=== PATIENT | male | born 1980 | race African-American/Black ===

== ENCOUNTER 2019-07-07 14:41 | Inpatient (IN) | payer BC ==
[2019-07-07] VITALS (200 sets, daily range): BP systolic 135–149; BP diastolic 97–118; PULSE 135–136; TEMP 98–98.7; O2SAT 90–99
[~2019-07-07] VITALS: Ht 180.3 cm; Wt 118.2 kg
[~2019-07-07 14:41] MED LIST: BACTRIM DS 8001 TAB PO; FLAGYL500 MG PO; GLUCOPHAGE1000 MG PO; GLUCOPHAGE500 MG/TAB PO; HYGROTON 2525 MG/TAB PO; MOTRIN 200200 MG/TAB PO; NO HOME MEDICATIONS; PERCOCET 325 MG1 TA2 PO; TYLENOL 325MG325 MG PO
[2019-07-07 15:14] LABS: BASO # 0.1 (0.0-0.2); BASO % 0.5 % (0.0-2.0); EOS # 0.1 (0.0-0.7); EOS % 0.5 % (0-4.0); GRAN # 10.3 (1.4-6.5); HEMATOCRIT 48.4 % (42.0-52.0); LYMPH # 1.5 (1.2-3.4); LYMPH % 11.9 % (20.0-51.0); MEAN CELL VOLUME 92 fl (80.0-100.0); MEAN CORPUSCULAR HEMOGLOBIN 31 pg (27.0-31.0); MEAN CORPUSCULAR HGB CONC 33 g/dl (33.0-37.0); MEAN PLATELET VOLUME 8.6 fl (7.4-10.4); MONO # 0.8 (0.1-0.6); MONO % 6.5 % (1.7-9.3); PLATELET COUNT 331 K/mm3 (130-400); RED BLOOD COUNT 5.25 M/mm3 (4.20-5.60); REDCELL DISTRIBUTION WIDTH-CV 13.8 % (11.5-14.5)
[2019-07-07 15:22] LABS: INR 0.9 (0.8-3.0); PROTHROMBIN TIME 10.8 SECONDS (9.7-12.8)
[2019-07-07 15:24] LABS: PARTIAL THROMBOPLASTIN TIME 29.8 SECONDS (26.0-37.0)
[2019-07-07 15:26] LABS: ALBUMIN 3.8 gm/dL (3.5-5.0); BILIRUBIN,TOTAL 0.7 mg/dL (0.0-1.0); CALCIUM 8.8 mg/dL (8.4-10.2); CREATININE, serum 1.37 (0.66-1.25); POTASSIUM 4.7 mmol/L (3.4-5.0); TOTAL PROTEIN 6.6 gm/dL (6.4-8.2)
[2019-07-07 15:48] LABS: TROPONIN-I 0.059 ng/mL (0.000-0.035)
--- NOTE | 2019-07-07 18:31 | NUR ---
PT ADMITTED FROM ED WITH AFIB. PT TRANSFERED TO BED. ICU MONITOR APPLIED. PT SHOWING AFIB ON TELE. PT IS AXOX4. PT ON DILT DRIP AT 15ML/HR. PT ORIENTED TO ROOM AND FLOOR. BEDSIDE. PT INSTRUCTED TO CALL [facility] ALL NEEDS.
--- NOTE | 2019-07-07 19:22 | NUR ---
CALLED REGARDING PT'S HR 135 AND DILT DRIP AT 15MG\HR. ORDER RECEIVED TO SLOWLY TITRATE DILT DRIP FROM 15 TO 20 OVER TWO HOURS. CALL BACK IN HR NOT BELOW 110. ENDORSED TO FOLLOWING CHUYITA.
--- NOTE | 2019-07-07 23:00 | NUR ---
Patient complaining of chest tightness 10/06. Called Dr. Toledo for new orders. Patient otherwise pleasant and cooperative. Does not complain of palpitations, IV infusing well.
[2019-07-07 23:52] LABS: PROTHROMBIN TIME 11.4 SECONDS (9.7-12.8)
[2019-07-07 23:55] LABS: PARTIAL THROMBOPLASTIN TIME 30.2 SECONDS (26.0-37.0)
[2019-07-08] VITALS (582 sets, daily range): BP systolic 91–118; BP diastolic 39–90; PULSE 58–124; TEMP 97.8–98.9; O2SAT 52–100
--- NOTE | 2019-07-08 01:26 | NUR ---
Patient resting in bed, denies chest tightness at this time, IV sites infusing well, patient uses call light appropriately for assistance.
--- NOTE | 2019-07-08 06:21 | NUR ---
Patient sitting up in bed, watching TV. States he has not slept all night and is wondering what time his procedure will be today or how long he will have to stay. Discussed plan of care and patient was agreeable. IVs infusing well, occcasional cough noted-nonproductive, patient uses call light appropriately.
[2019-07-08 06:51] LABS: CALCIUM 8.3 mg/dL (8.4-10.2); CHOLESTEROL RISK RATIO 2.8; CREATININE, serum 1.64 (0.66-1.25); POTASSIUM 4.2 mmol/L (3.4-5.0)
[2019-07-08 07:13] LABS: TROPONIN-I 0.071 ng/mL (0.000-0.035)
[2019-07-08 07:33] LABS: BASO # 0.1 (0.0-0.2); BASO % 0.8 % (0.0-2.0); EOS # 0.1 (0.0-0.7); GRAN # 7.5 (1.4-6.5); GRAN % 67.1 % (42.2-75.2); HEMATOCRIT 43.3 % (42.0-52.0); HEMOGLOBIN 14.3 g/dl (13.5-18.0); LYMPH # 2.4 (1.2-3.4); LYMPH % 21.7 % (20.0-51.0); MEAN CELL VOLUME 93 fl (80.0-100.0); MEAN CORPUSCULAR HEMOGLOBIN 31 pg (27.0-31.0); MEAN CORPUSCULAR HGB CONC 33 g/dl (33.0-37.0); MEAN PLATELET VOLUME 9.4 fl (7.4-10.4); MONO % 8.6 % (1.7-9.3); PLATELET COUNT 331 K/mm3 (130-400); RED BLOOD COUNT 4.67 M/mm3 (4.20-5.60); REDCELL DISTRIBUTION WIDTH-CV 14.1 % (11.5-14.5)
--- NOTE | 2019-07-08 07:50 | NUR ---
HEPARIN DRIP STOPPED AT 0700 D/T HIGH XA. REPEAT XA STILL HIGH 1.91. WILL KEEP OFF FOR TWO HOURS AND RECHECK XA.
--- NOTE | 2019-07-08 11:36 | NUR ---
0850: SPOKE WITH DINH IN ANESTHESIA REGARDING VANESSA/CARDIOVERSION TODAY AT 1230. 0915: ECHO UNABLE TO DO AT 1230. STATES THEY CAN DO 130. CALL PLACED TO ANESTHESIA REGARDING TIME CHANGE. STATES THEY ARE ABLE TO DO AT 130. 0920: DR. JEFF NOTIFIED OF ABOVE. STATES THAT DR FAJARDO WILL DO AT 130. 0930: CALL TO ECHO TO CONFIRM VANESSA/CARDIOVERSION AT 0130. PT UPDATED.
--- NOTE | 2019-07-08 12:17 | NUR ---
PT IS VERY DIAPHORETIC. PTS HR AFLUTTER IN THE 60'S, BP IN THE 90'S, AFEBRILE, AND BG 201. PT STATES HE IS SLIGHTLY LIGHTHEADED AND FEELS CRUMY. NOTIFIED. WILL CONTINUE TO MONITOR.
--- NOTE | 2019-07-08 12:54 | NUR ---
PT'S BP REMAINING IN THE 80'S-90'S. HR AFLUTTER 50-60. CALLED AND SPOKE WITH REGARDING ABOVE. ORDER TO BOLUS NS 500ML AND KEEP DILT DRIP OFF. WILL STILL PLAN TO CARDIOVERT AT 1330.
[2019-07-08 13:12] LABS: CREATININE, serum 1.93 (0.66-1.25)
[2019-07-08 14:06] LABS: FRACTIONAL EXCRETION OF NA+ 0.1 %
--- NOTE | 2019-07-08 14:15 | NUR ---
PT HAVING BEDSIDE CARDIOVERSIOIN AND VANESSA WITH , DIVISION ORDER TECHNICIAN, AND ANESTHESIA. AND ANESTHESIA BOTH NOTIFIED OF PT'S BP IN THE 80'S-90'S. 1418 PROBE IN FOR VANESSA. 1419 PT SHOCKED AT 15 JOULES PT REMAINED IRREGULAR. 1421 PT SHOCK AT 100 JOULES AND CONVERTED TO SR. 1430 PROCEDURE COMPLETED. ORDERED TO CHANGE METOPROLOL TO SUCCINATE 12.5MG DAILY, DC CARDIZEM, AND START AMIODARONE 400MG BID.
--- NOTE | 2019-07-08 15:30 | NUR ---
PT NOTED TO HAVE INVERTED P WAVES. EKG DONE AND SHOWING JUNCTIONAL. CALLED AND NOTIFIED. STATES HE WILL REVIEW EKG, ALSO TO HOLD TONIGHTS DOSE OF METOPROLOL AND AMIODARONE.
[2019-07-08 15:36] LABS: T3 FREE (TRI-IODOTHYRONINE) 2.7 pg/mL (1.7-3.7)
--- NOTE | 2019-07-08 21:41 | NUR ---
PT assessed, is fairly drowsy but wakens easily to voice and follows directions, answers questions appropriately. States that nausea is improving, able to drink water without feeling ill. Updated on POC for the evening, PT stated that his goal was to rest and control his nausea tonight. Will work on implementing that goal tonight while assessing for any changes in assessment.
[2019-07-08 23:23] LABS: MUCOUS Present /lpf; PH 5 (5-8); SQUAMOUS EPITHELIAL 0-2 /hpf; URINE APPEARANCE Turbid; URINE BACTERIA None Seen /hpf; URINE BILIRUBIN Negative (NEGATIVE); URINE BLOOD Negative (NEGATIVE); URINE COLOR Amber; URINE GLUCOSE Negative (NEGATIVE); URINE KETONE Negative (NEGATIVE); URINE LEUKOCYTE ESTERASE Negative (NEGATIVE); URINE NITRATE Negative (NEGATIVE); URINE PROTEIN(semi-quant) 2+ (NEGATIVE); URINE RBC 0-2 /hpf; URINE UROBILINOGEN Negative (NEGATIVE); URINE WBC 0-2 /hpf
[2019-07-08 23:27] LABS: COLLECTION METHOD CLEAN CATCH
[2019-07-09] VITALS (892 sets, daily range): BP systolic 118–144; BP diastolic 85–108; PULSE 73–92; TEMP 97.5–98.3; O2SAT 74–100
[2019-07-09 05:24] LABS: BASO # 0.1 (0.0-0.2); BASO % 0.5 % (0.0-2.0); GRAN # 9.6 (1.4-6.5); GRAN % 77.3 % (42.2-75.2); HEMATOCRIT 46.6 % (42.0-52.0); HEMOGLOBIN 15.1 g/dl (13.5-18.0); LYMPH # 1.7 (1.2-3.4); LYMPH % 13.7 % (20.0-51.0); MEAN CELL VOLUME 93 fl (80.0-100.0); MEAN CORPUSCULAR HEMOGLOBIN 30 pg (27.0-31.0); MEAN CORPUSCULAR HGB CONC 32 g/dl (33.0-37.0); MEAN PLATELET VOLUME 9.2 fl (7.4-10.4); MONO # 0.9 (0.1-0.6); MONO % 7.3 % (1.7-9.3); PLATELET COUNT 303 K/mm3 (130-400); REDCELL DISTRIBUTION WIDTH-CV 14.6 % (11.5-14.5)
[2019-07-09 05:39] LABS: CREATININE, serum 3.19 (0.66-1.25); POTASSIUM 5.7 mmol/L (3.4-5.0)
--- NOTE | 2019-07-09 07:10 | NUR ---
Bedside report given to CHUYITA Faust.
--- NOTE | 2019-07-09 07:10 | NUR ---
Report received from Aditi BOOGIE and care resumed.
--- NOTE | 2019-07-09 08:50 | NUR ---
Dr Reddy in to see pt at this time.
--- NOTE | 2019-07-09 09:10 | NUR ---
Dr Castañeda in to see pt at this time.
--- NOTE | 2019-07-09 10:43 | NUR ---
ROQUE benjamin attended clinical rounds with the team. Medical Data Analyst and Psychiatrist consulted. After rounds ROQUE benjamin met with the patient to discuss a discharge plan. The patient lives in [place] with a roommate, Professor Nitin Baca. The patient does not use DME and reports independence with ADLs. The patient does not have a PCP at this time, a list of physicians was offered then provided. The patient receives any medications from [facility] in [place] with no difficulties. The patient does not have advanced directives in the EMR. DPOA-HC form was provided. The patient plans to return home upon discharge with a friend providing transportation, if needed. The patient drove himself to the hospital. financial services agent will continue to follow to ensure a safe discharge.
--- NOTE | 2019-07-09 15:07 | NUR ---
Dr Brien Stubbs in to see pt at this time.
[2019-07-09 17:57] LABS: CALCIUM 8.1 mg/dL (8.4-10.2); CREATININE, serum 2.33 (0.66-1.25); POTASSIUM 4.6 mmol/L (3.4-5.0)
--- NOTE | 2019-07-09 19:08 | NUR ---
Report given to Brent BOOGIE and care transfered.
--- NOTE | 2019-07-09 19:32 | NUR ---
Patient assessment completed and charted at this time, please see documentation for details. Patient resting in bed, no issues to report. Evening dose of lasix given early for patient comfort. Call light within reach, patient states he is expecting some guests shortly. No further issues to address at this time.
[2019-07-10] VITALS (74 sets, daily range): BP systolic 98–138; BP diastolic 59–99; PULSE 79–84; TEMP 98–98.6; O2SAT 90–96
--- NOTE | 2019-07-10 04:30 | NUR ---
Report received from CHUYITA Kennedy. Pt. is A&OX3, assessment complete. INTx2 Rt. AC and Lt. hand, sites patent. Pt. is on tele. Pt. denies pain or other needs, call light within reach.
--- NOTE | 2019-07-10 04:35 | NUR ---
Report given to CHUYITA Guzman and patient taken to floor accompanied by CHUYITA Guzman and MARGRET Mcallister. Passing off care of patient at this time, no signs of distress.
[2019-07-10 08:33] LABS: BASO # 0.1 (0.0-0.2); BASO % 0.6 % (0.0-2.0); EOS # 0.2 (0.0-0.7); EOS % 1.3 % (0-4.0); GRAN # 8.9 (1.4-6.5); GRAN % 72.2 % (42.2-75.2); HEMATOCRIT 43.3 % (42.0-52.0); HEMOGLOBIN 14.3 g/dl (13.5-18.0); LYMPH % 15.9 % (20.0-51.0); MEAN CELL VOLUME 93 fl (80.0-100.0); MEAN CORPUSCULAR HEMOGLOBIN 31 pg (27.0-31.0); MEAN CORPUSCULAR HGB CONC 33 g/dl (33.0-37.0); MEAN PLATELET VOLUME 8.8 fl (7.4-10.4); MONO # 1.2 (0.1-0.6); MONO % 9.3 % (1.7-9.3); PLATELET COUNT 270 K/mm3 (130-400); RED BLOOD COUNT 4.67 M/mm3 (4.20-5.60); REDCELL DISTRIBUTION WIDTH-CV 14.4 % (11.5-14.5)
[2019-07-10 08:42] LABS: CALCIUM 8.1 mg/dL (8.4-10.2); CREATININE, serum 1.89 (0.66-1.25); MAGNESIUM 1.8 mg/dL (1.6-2.3); POTASSIUM 4.6 mmol/L (3.4-5.0)
--- NOTE | 2019-07-10 09:30 | NUR ---
Pt received from surgical unit to rm 315, ambulates down hallway with steady gait accompanied by Iona Brambila, denies pain or needs. Physical assessment unremarkable. Saline lock x 2 without s/s of complications. POC reviewed with pt. Call light in reach.
[2019-07-10 15:28] LABS: THYRD STIMULATING IMMUNOGLOB <1.0 (<=1.3)
--- NOTE | 2019-07-10 18:00 | NUR ---
Pt sitting up on side of bed, denies pain or needs. Uneventful shift, pt using urinal to track output. Call light in reach.
--- NOTE | 2019-07-10 20:30 | NUR ---
Initial shift assessment done-denies pain/SOB,, sitting at edge of bed- no requests, Tele on NSR, Understands to use urinal so that we can measure urine output- compliant. Some applesauce and sprite zero given as HS snack per pts requests
[2019-07-11 00:12] VITALS: BP 130/86; PULSE 85
[2019-07-11 03:56] VITALS: BP 148/78; PULSE 90
--- NOTE | 2019-07-11 05:38 | NUR ---
Quiet night- VSS, did sleep well during the night, Voidng good amounts of yellow urine during the night-
[2019-07-11 06:43] LABS: BASO # 0.1 (0.0-0.2); BASO % 0.6 % (0.0-2.0); EOS # 0.3 (0.0-0.7); GRAN % 62.4 % (42.2-75.2); HEMATOCRIT 42.1 % (42.0-52.0); HEMOGLOBIN 13.6 g/dl (13.5-18.0); LYMPH # 2.1 (1.2-3.4); LYMPH % 22.2 % (20.0-51.0); MEAN CELL VOLUME 93 fl (80.0-100.0); MEAN CORPUSCULAR HEMOGLOBIN 30 pg (27.0-31.0); MEAN CORPUSCULAR HGB CONC 32 g/dl (33.0-37.0); MEAN PLATELET VOLUME 8.8 fl (7.4-10.4); MONO # 1.1 (0.1-0.6); MONO % 11.1 % (1.7-9.3); PLATELET COUNT 269 K/mm3 (130-400); RED BLOOD COUNT 4.53 M/mm3 (4.20-5.60)
--- NOTE | 2019-07-11 07:00 | NUR ---
Bedside shift report received from CHUYITA Delgadillo. PT in bed resting with no needs, will continue to monitor.
[2019-07-11 07:02] LABS: CALCIUM 8.3 mg/dL (8.4-10.2); CREATININE, serum 1.47 (0.66-1.25); POTASSIUM 4.2 mmol/L (3.4-5.0)
[2019-07-11 07:53] VITALS: BP 169/111; PULSE 79; TEMP 98.6
--- NOTE | 2019-07-11 09:15 | NUR ---
Assessment charted, pt feeling well, denies pain, anticipating dishcarge today. INT to LH. Will cotninue to monitor.
[2019-07-11] MEDS ORDERED: XARELTO20 MG PO (10:11)
[2019-07-11] MEDS ORDERED: ZESTRIL 10MG10 MG PO (10:40)
[2019-07-11] MEDS ORDERED: TOPROL XL 25MG25 MG PO (10:40)
[2019-07-11] MEDS ORDERED: ZOLOFT 50MG50 MG PO (10:44)
[2019-07-11] MEDS ORDERED: LASIX 40MG TABL40 MG PO (10:46)
[2019-07-11] MEDS ORDERED: GLUCOPHAGE500 MG/TAB PO (10:52)
[2019-07-11] MEDS ORDERED: LANCETS MC (10:55)
[2019-07-11] MEDS ORDERED: FREESTYLE PREC1 EAC5 MC (10:55)
[2019-07-11] MEDS ORDERED: GLUCOSE TEST ST1 DEV MC (10:55)
[2019-07-11 11:54] VITALS: BP 141/90; PULSE 71; TEMP 98.4
--- NOTE | 2019-07-11 13:25 | NUR ---
Discharge teaching completed at [facility] time. PT dishcarge packet reviewed, discusssed cost of meds/month per pharmacy. Reviewed f/u appt and labs. INT dc'd, tip intact. Friends to drive pt home. PT unable to find hat but all other belongings were in his possession. Escorted out by myself, criteria met.
--- NOTE | 2019-07-11 13:50 | NUR ---
Production Line Technician attended rounds with the team and patient to discharge home today. No additional concerns at this time.
== END 2019-07-11 13:27 | disposition home or self-care (01) | DRG 281 ==
LOC: COL.ER 14:41 → ICU 15:43 → MEDICAL 15:43 → SURG 07-10 04:30 → MEDICAL 07-10 10:01
PROVIDERS: Emergency Medicine; Hospitalist; Internal Medicine Cardiovascular Disease; Physician Assistant; ADMIT Internal Medicine
PROC: 5A2204Z Restoration of Cardiac Rhythm, Single (ICD-10-PCS; principal; 2019-07-08)
DX: I48.92 Unspecified atrial flutter (principal); I21.A1 Myocardial infarction type 2; N17.9 Acute kidney failure, unspecified; I13.0 Hypertensive heart and chronic kidney disease with heart failure and stage 1 through stage 4 chronic kidney disease, or unspecified chronic kidney disease; I50.40 Unspecified combined systolic (congestive) and diastolic (congestive) heart failure; E78.5 Hyperlipidemia, unspecified; I11.0 Hypertensive heart disease with heart failure; N18.9 Chronic kidney disease, unspecified; G47.33 Obstructive sleep apnea (adult) (pediatric); J45.909 Unspecified asthma, uncomplicated; F41.9 Anxiety disorder, unspecified; I95.9 Hypotension, unspecified; F43.22 Adjustment disorder with anxiety; E66.9 Obesity, unspecified; E11.65 Type 2 diabetes mellitus with hyperglycemia; E11.22 Type 2 diabetes mellitus with diabetic chronic kidney disease; E87.5 Hyperkalemia; E05.80 Other thyrotoxicosis without thyrotoxic crisis or storm; Z79.84 Long term (current) use of oral hypoglycemic drugs
CPT/HCPCS: 99222-AI; 99231-AI; 99232-AI; 99233-AI; 99239; J1644; J1815; J1940; J2370; J2405; J2704; J7030; J7040

== ENCOUNTER 2019-09-23 13:32 | Emergency (ER) | payer BC ==
[~2019-09-23] VITALS: Ht 180.3 cm; Wt 109.1 kg
[~2019-09-23 13:32] MED LIST changes: +FREESTYLE PREC1 EAC5 MC; +GLUCOSE TEST ST1 DEV MC; +LANCETS MC; +LASIX 40MG TABL40 MG PO; +TOPROL XL 25MG25 MG PO; +XARELTO20 MG PO; +ZESTRIL 10MG10 MG PO; +ZOLOFT 50MG50 MG PO
[2019-09-23 13:33] VITALS: TEMP 98
[2019-09-23 13:58] LABS: BASO # 0.1 (0.0-0.2); BASO % 0.6 % (0.0-2.0); EOS # 0.1 (0.0-0.7); EOS % 1.3 % (0-4.0); GRAN # 6.1 (1.4-6.5); GRAN % 61.5 % (42.2-75.2); HEMATOCRIT 45.1 % (42.0-52.0); HEMOGLOBIN 15.1 g/dl (13.5-18.0); LYMPH # 2.6 (1.2-3.4); LYMPH % 26.2 % (20.0-51.0); MEAN CELL VOLUME 89 fl (80.0-100.0); MEAN CORPUSCULAR HEMOGLOBIN 30 pg (27.0-31.0); MEAN CORPUSCULAR HGB CONC 34 g/dl (33.0-37.0); MONO % 9.7 % (1.7-9.3); PLATELET COUNT 301 K/mm3 (130-400); RED BLOOD COUNT 5.08 M/mm3 (4.20-5.60); REDCELL DISTRIBUTION WIDTH-CV 13.2 % (11.5-14.5)
[2019-09-23 14:03] LABS: INR 1.3 (0.8-3.0); PROTHROMBIN TIME 15.7 SECONDS (9.7-12.8)
[2019-09-23 14:06] LABS: ALBUMIN 4.1 gm/dL (3.5-5.0); BILIRUBIN,TOTAL 0.7 mg/dL (0.0-1.0); CALCIUM 8.8 mg/dL (8.4-10.2); CREATININE, serum 1.29 (0.66-1.25); POTASSIUM 4.5 mmol/L (3.4-5.0); TOTAL PROTEIN 7.4 gm/dL (6.4-8.2)
[2019-09-23 14:18] LABS: TROPONIN-I 0.018 ng/mL (0.000-0.035)
[2019-09-23 15:56] VITALS: BP 141/96; PULSE 85
== END 2019-09-23 15:56 | disposition home or self-care (01) ==
LOC: COL.ER 13:32
PROVIDERS: Emergency Medicine
DX: I48.92 Unspecified atrial flutter (principal); E11.9 Type 2 diabetes mellitus without complications; Z79.01 Long term (current) use of anticoagulants; Z79.84 Long term (current) use of oral hypoglycemic drugs
CPT/HCPCS: J2704; J7030

== ENCOUNTER 2020-07-07 11:01 | Emergency (ER) | payer BC ==
[~2020-07-07] VITALS: Ht 180.3 cm; Wt 111.4 kg
[2020-07-07 11:05] VITALS: TEMP 98
[2020-07-07 11:37] LABS: BASO # 0.1 (0.0-0.2); BASO % 0.6 % (0.0-2.0); EOS # 0.3 (0.0-0.7); EOS % 2.5 % (0-4.0); GRAN # 6.4 (1.4-6.5); HEMATOCRIT 50.1 % (42.0-52.0); HEMOGLOBIN 16.2 g/dl (13.5-18.0); LYMPH # 2.5 (1.2-3.4); LYMPH % 24.7 % (20.0-51.0); MEAN CELL VOLUME 92 fl (80.0-100.0); MEAN CORPUSCULAR HEMOGLOBIN 30 pg (27.0-31.0); MEAN CORPUSCULAR HGB CONC 32 g/dl (33.0-37.0); MEAN PLATELET VOLUME 8.6 fl (7.4-10.4); MONO # 0.9 (0.1-0.6); MONO % 8.8 % (1.7-9.3); PLATELET COUNT 346 K/mm3 (130-400); RED BLOOD COUNT 5.46 M/mm3 (4.20-5.60); REDCELL DISTRIBUTION WIDTH-CV 13.2 % (11.5-14.5)
[2020-07-07 11:42] LABS: ALBUMIN 4.2 gm/dL (3.5-5.0); BILIRUBIN,TOTAL 0.4 mg/dL (0.0-1.0); CALCIUM 9.1 mg/dL (8.4-10.2); CREATININE, serum 1.4 (0.66-1.25); POTASSIUM 4.5 mmol/L (3.4-5.0); TOTAL PROTEIN 7.6 gm/dL (6.4-8.2)
[2020-07-07 11:55] LABS: TROPONIN-I 0.703 ng/mL (0.000-0.035)
[2020-07-07 12:19] LABS: INR 0.9 (0.8-3.0)
[2020-07-07 17:09] VITALS: BP 138/110; PULSE 131
== END 2020-07-07 17:12 | disposition short-term general hospital (02) ==
LOC: COL.ER 11:01
PROVIDERS: Family Medicine
DX: I48.92 Unspecified atrial flutter (principal); E11.9 Type 2 diabetes mellitus without complications; I10 Essential (primary) hypertension; F41.9 Anxiety disorder, unspecified; Z20.828 Contact with and (suspected) exposure to other viral communicable diseases; Z79.01 Long term (current) use of anticoagulants; Z79.84 Long term (current) use of oral hypoglycemic drugs
CPT/HCPCS: J7030